=== PATIENT | male | born 1975 | race Caucasian/White ===

== ENCOUNTER → 2020-07-26 | Outpatient (CLI) | payer BC ==
--- NOTE | 2020-07-26 08:46 | Diagnostic Imaging Report ---
INDICATION: ELEVATED LIVER ENZYMES TECHNIQUE: Multiple real-time bradshaw scale sonographic images of the abdomen. CORRELATION STUDY: None FINDINGS: LIVER: Diffusely increased echotexture within the visualized portions of the liver. Left hepatic lobe is partially obscured. Liver length 17.5 cm. There is normal, hepatopedal direction of flow within the main portal vein. GALLBLADDER: No shadowing gallstones or pericholecystic fluid. COMMON BILE DUCT: Largely obscured and not able to be identified. No overt bile duct dilatation. PANCREAS: Also largely obscured by overlying bowel gas. SPLEEN: Unremarkable. ABDOMINAL AORTA: Unremarkable. INFERIOR VENA CAVA: Limited in visualization. RIGHT KIDNEY: 12.7 x 6.1 x 5.8 cm. Unremarkable. LEFT KIDNEY: 12.1 x 6.4 x 7.6 cm. Unremarkable. OTHER: None. IMPRESSION: 1. Likely hepatic steatosis. Liver size normal. 2. Otherwise unremarkable-appearing abdominal ultrasound evaluation. However, midline structures in particular are not well visualized, largely obscured by overlying bowel gas. Dictated by: Dictated on workstation # [id number]
== END ==
LOC: RAD 07-19 08:01
PROVIDERS: ATTEND Family Medicine
DX: R94.5 Abnormal results of liver function studies (principal)
CPT/HCPCS: 76700